=== PATIENT | female | born 1980 | race Caucasian/White ===

== ENCOUNTER 2017-11-12 22:33 | Emergency (ER) | payer SELFPAY ==
--- NOTE | 2017-11-13 00:33 | C.PDOC ---
History Of Present Illness 37 y/o female presents to the ED complaining of body aches, subjective fever, chills, and dry cough, onset earlier today. Patient has now developed left ear pain as well. Denies associated ear discharge, trauma, nausea, vomiting, chest pain, or SOB. No sick contacts or recent travel. HPI: Influenza Time Seen by Provider: 11/12/17 22:45 Chief Complaint: Flu-like Symptoms Chief Complaint (Provider): Flu-like Symptoms History Per: Patient Exam Limitations: no limitations Onset/Duration Of Symptoms: Days (x1) Symptoms include: fever, bodyaches, cough Sick Contacts (Context): None Past Medical History Reviewed: Historical Data, Nursing Documentation, Vital Signs Vital Signs: Last Vital Signs Temp 99.0 F 11/12/17 22:34 Pulse 103 H 11/12/17 22:34 Resp 18 11/12/17 22:34 BP 124/77 11/12/17 22:34 Pulse Ox 97 11/12/17 22:34 - Medical History PMH: No Chronic Diseases Surgical History: No Surg Hx Family History: States: No Known Family Hx - Social History Hx Tobacco Use: No Hx Alcohol Use: Yes Hx Substance Use: No - Immunization History Hx Tetanus Toxoid Vaccination: No Hx Influenza Vaccination: Yes Hx Pneumococcal Vaccination: No Review Of Systems Except As Marked, All Systems Reviewed And Found Negative. Constitutional: Positive for: Fever, Chills, Other (body aches) ENT: Positive for: Ear Pain. Negative for: Ear Discharge, Other (ear trauma) Cardiovascular: Negative for: Chest Pain Respiratory: Positive for: Cough. Negative for: Shortness of Breath, Sputum Gastrointestinal: Negative for: Nausea, Vomiting Physical Exam - Physical Exam Appears: Non-toxic, No Acute Distress Skin: Normal Color, Warm, Dry Head: Atraumatic, Normacephalic Eye(s): bilateral: Normal Inspection, PERRL, EOMI Ear(s): Bilateral: Normal Nose: Normal Oral Mucosa: Moist Throat: Normal, No Erythema, No Exudate Neck: Normal, Normal ROM, Supple Chest: Symmetrical Cardiovascular: Rhythm Regular, No Murmur Respiratory: Normal Breath Sounds, No Rhonchi, No Wheezing Gastrointestinal/Abdominal: Soft, No Tenderness, No Distention, No Guarding Back: No CVA Tenderness Extremity: Bilateral: Atraumatic, Normal Color And Temperature Neurological/Psych: Oriented x3, Normal Speech Gait: Steady - ECG O2 Sat by Pulse Oximetry: 97 (RA) Pulse Ox Interpretation: Normal - Progress ED Course And Treament: Patient given Motrin PO. On reevaluation patient is afebrile, AAOx3, and stable for discharge home. Counseled patient regarding diagnosis and the need for follow up with PMD Condition: Improving,but remains with symptoms Disposition Counseled Patient/Family Regarding: Diagnosis, Need For Followup, Rx Given - Disposition Referrals: [facility] [Outside] Disposition: HOME/ ROUTINE Disposition Time: 00:30 Condition: STABLE Additional Instructions: Increase PO fluids' Take meds as directed Return to ER if worse Prescriptions: Benzonatate [Tessalon Perles] 100 mg PO TID #20 sgl Cetirizine HCl [Zyrtec] 10 mg PO DAILY #20 capsule Ibuprofen [Motrin] 600 mg PO Q6H #20 tab Instructions: Viral Upper Respiratory Infection, Adult (DC) Forms: [employer] (Serbian) Print Language: ARGENTINE - POA Present On Arrival: None - Clinical Impression Clinical Impression: Upper respiratory infection, Influenza-like illness - PA / MASSOTHERAPIST / Resident Statement MD/DO has reviewed & agrees with the documentation as recorded. - Scribe Statement The provider has reviewed the documentation as recorded by the Scribe (Alesia Hoskins) All medical record entries made by the Scribe were at my direction and personally dictated by me. I have reviewed the chart and agree that the record accurately reflects my personal performance of the history, physical exam, medical decision making, and the department course for this patient. I have also personally directed, reviewed, and agree with the discharge instructions and disposition.
[2017-11-13 00:44] VITALS: BP 129/74; PULSE 75; RESP 20; TEMP 98.2
[2017-11-13 04:14] VITALS: O2SAT 97
== END 2017-11-13 00:42 | disposition home or self-care (01) ==
LOC: C.ER 22:33
DX: J11.1 Influenza due to unidentified influenza virus with other respiratory manifestations (principal); J06.9 Acute upper respiratory infection, unspecified